=== PATIENT | male | born 1960 | race Caucasian/White ===

== ENCOUNTER 2017-10-19 07:18 | Emergency (ER) | payer SELFPAY ==
[~2017-10-19] VITALS: Ht 185.4 cm; Wt 99.6 kg
[2017-10-19] MEDS ORDERED: NAPROXEN500 MG PO (07:53)
[2017-10-19] MEDS ORDERED: PERCOCET 5/31 TABLET PO (08:46)
[2017-10-19 09:19] VITALS: BP 165/89
== END 2017-10-19 09:19 | disposition home or self-care (01) ==
LOC: EME 07:18
DX: M54.16 Radiculopathy, lumbar region (principal)
CPT/HCPCS: 72100; 99281; 99283